=== PATIENT | female | born 1995 | race Caucasian/White ===

== ENCOUNTER 2021-02-28 15:21 | Outpatient (CLI) | payer BC | END 2021-02-28 15:22 | disposition home or self-care (01) | LOC: BICRAD 15:21 | PROVIDERS: ATTEND Family Medicine | DX: M41.9 Scoliosis, unspecified (principal); M54.6 Pain in thoracic spine; M54.2 Cervicalgia; M50.30 Other cervical disc degeneration, unspecified cervical region; M46.02 Spinal enthesopathy, cervical region | CPT/HCPCS: 72052; 72081 ==